=== PATIENT | male | born 1935 | race Caucasian/White ===

== ENCOUNTER 2020-07-07 06:57 | Day surgery (SDC) | payer MEDICARE, BC ==
[~2020-07-07 06:57] MED LIST: Lactated Ringers 1,000 ML IV SCH; Sodium Chloride 0.9% 10 ML SDV IV PRN; Sodium Chloride 0.9% 10 ML Syringe FLUSH PRN; Sodium Chloride 0.9% 2.5 ML Syringe FLUSH PRN
[2020-07-07] MEDS ORDERED: Lidocaine 2% 5 ML SDV ONE (07:15)
[2020-07-07] MEDS ORDERED: fentaNYL 100 MCG/2 ML SDV ONE (07:16)
[2020-07-07] MEDS ORDERED: Propofol 200 MG/20 ML SDV ONE (07:16)
--- NOTE | 2020-07-07 07:45 | PCM.PREANE ---
Preanesthetic Assessment - Anesthesia/Transfusion/Family Hx Anesthesia History: Prior Anesthesia Without Reaction Other Type of Anesthesia Reaction Comment: Denies any known problem in past Family History of Anesthesia Reaction: No Transfusion History: No Prior Transfusion(s) Intubation History: Unknown - Review of Systems General: No Symptoms Pulmonary: No Symptoms Cardiovascular: No Symptoms Gastrointestinal: Other (intermittent incontinance, h/o colon polyps 6 years ago (dr Pearce)) Neurological: No Symptoms Other: Reports: None - Physical Assessment Vital Signs: Last Vital Signs Temp 36.0 C L 07/07/20 07:10 Pulse 75 07/07/20 07:10 Resp 16 07/07/20 07:10 BP 142/75 H 07/07/20 07:10 Pulse Ox 95 07/07/20 07:10 Height: 6 ft 3 in Weight: 85.275 kg ASA Class: 3 Mental Status: Alert & Oriented x3 Airway Class: Mallampati = 2 Dentition: Reports: Dentures (upper and lower) Thyro-Mental Finger Breadths: 3 Mouth Opening Finger Breadths: 2 ROM/Head Extension: Limited/Partial Lungs: Clear to Auscultation, Normal Respiratory Effort Cardiovascular: Regular Rate, Regular Rhythm - Allergies Allergies/Adverse Reactions: Allergies Allergy/AdvReac Type Severity Reaction Status Date / Time No Known Allergies Allergy Verified 07/01/20 11:14 - Blood Blood Available: No - Anesthesia Plan Pre-Op Medication Ordered: None - Acknowledgements Anesthesia Type Planned: MAC Pt an Appropriate Candidate for the Planned Anesthesia: Yes Alternatives and Risks of Anesthesia Discussed w Pt/Guardian: Yes Pt/Guardian Understands and Agrees with Anesthesia Plan: Yes PreAnesthesia Questionnaire HEENT History: Reports: Allergic Rhinitis, Hard of Hearing, Other (See Below) Other HEENT History: wears glasses, top and bottom dentures, evon hearing aids Cardiovascular History: Reports: Afib (hystory of A. fib), Bypass (CABG x3 5 years ago -ok since), CAD, Heart Valve Replacement (AVR 5 years ago), High Cholesterol, [place] (small anterior 5 years ago), Other (See Below) Other Cardiovascular History: TIA episode before the Left carotid endarderectomy (rt arm weakness for 1/2 hour) Respiratory History: Reports: None Gastrointestinal History: Reports: Colon Polyp Genitourinary History: Reports: Prostate Disorder Musculoskeletal History: Reports: None Other Musculoskeletal History: To Right Hip...currently cleared after consistent anti-inflammatory therapy Neurological History: Reports: None Other Neuro History: Mild episode "spell" before Carotid surgery Psychiatric History: Reports: None Endocrine/Metabolic History: Reports: None Hematologic History: Reports: None Immunologic History: Reports: None Oncologic (Cancer) History: Reports: Basal Cell Carcinoma, Prostate ( prostatectomy with no radiation), Other (See Below) Other Oncologic History: basal cell removed from forehead and rt ear Dermatologic History: Reports: None Other Dermatologic History: Excision off Ear - Past Surgical History Head Surgeries/Procedures: Reports: None HEENT Surgical History: Reports: Cataract Surgery, Radiocarotid Ectomy (left carotid 6 years ago) Other HEENT Surgeries/Procedures: Cataract surgery many yrs ago Cardiovascular Surgical History: Reports: Coronary Artery Bypass (x3 5 years ago), Valve Replacement (AVR 5 years ago) Respiratory Surgical History: Reports: None GI Surgical History: Reports: Colonoscopy Other Female Surgeries/Procedures: Prostate Surgery Male Surgical History: Reports: Prostatectomy () Endocrine Surgical History: Reports: None Neurological Surgical History: Reports: None Musculoskeletal Surgical History: Reports: None Oncologic Surgical History: Reports: Other (See Below) Other Oncologic Surgeries/Procedures: prostatectomy Dermatological Surgical History: Reports: Skin Biopsy - SUBSTANCE USE Smoking Status *Q: Former Smoker Tobacco Use Within Last Twelve Months: No Recreational Drug Use History: No - HOME MEDS Home Medications: Home Meds Ascorbate Calcium [Vitamin C] 1 tab PO DAILY 07/16/14 [History] Aspirin 1 tab PO DAILY 07/16/14 [History] Multivit-Min/FA/Lycopene/Lut [Centrum Silver] 1 tab PO DAILY 07/16/14 [History] atorvaSTATin Calcium [Atorvastatin Calcium] 40 mg PO DAILY 07/01/20 [History] - CURRENT (IN HOUSE) MEDS Current Meds: Current Medications Lactated Ringer's (Ringers, Lactated) 1,000 mls @ 125 mls/hr IV ASDIRECTED KATE Last Admin: 07/07/20 07:20 Dose: 125 mls/hr Documented by: Sodium Chloride (Saline Flush) 10 ml FLUSH ASDIRECTED PRN PRN Reason: Keep Vein Open Sodium Chloride (Saline Flush) 2.5 ml FLUSH ASDIRECTED PRN PRN Reason: Keep Vein Open Sodium Chloride (Saline Flush) 10 ml FLUSH ASDIRECTED PRN PRN Reason: Keep Vein Open Sodium Chloride (Saline Flush) 2.5 ml FLUSH ASDIRECTED PRN PRN Reason: Keep Vein Open Sodium Chloride (Normal Saline) 10 ml IV ASDIRECTED PRN PRN Reason: IV Use Discontinued Medications Fentanyl (Sublimaze) Confirm Administered Dose 100 mcg .ROUTE .STK-MED ONE Stop: 07/07/20 07:17 Lidocaine (Xylocaine-Mpf 2%) Confirm Administered Dose 5 ml .ROUTE .STK-MED ONE Stop: 07/07/20 07:16 Propofol (Diprivan 20 Ml) Confirm Administered Dose 400 mg .ROUTE .STK-MED ONE Stop: 07/07/20 07:17
[2020-07-07] MEDS ORDERED: ePHEDrine 50 MG/ML SDV ONE (08:13)
--- NOTE | 2020-07-07 08:54 | PCM.OPNOTE ---
- General Post-Op/Procedure Note Date of Surgery/Procedure: 07/07/20 Operative Procedure(s): Diagnostic colonoscopy Findings: Rectal polyp, sigmoid colon polyps x 2 @ 40 cm, ascending colon mass @ 80cm Pre Op Diagnosis: Fecal incontinence, change in bowel habits Post-Op Diagnosis: Ascending colon mass, rectal polyp, sigmoid colon polyp x 2 Anesthesia Technique: MAC Primary Surgeon: Barbara Rios Condition: Good
--- NOTE | 2020-07-07 09:20 | PCM.POSTAN ---
POST ANESTHESIA ASSESSMENT - MENTAL STATUS Mental Status: Alert, Oriented - VITAL SIGNS Vital Signs: Last Vital Signs Temp 36.0 C L 07/07/20 07:10 Pulse 74 07/07/20 09:04 Resp 9 L 07/07/20 09:04 BP 120/71 07/07/20 09:04 Pulse Ox 94 L 07/07/20 09:04 - RESPIRATORY Respiratory Status: Respiratory Rate WNL, Airway Patent, O2 Saturation Stable - CARDIOVASCULAR CV Status: Pulse Rate WNL, Blood Pressure Stable - GASTROINTESTINAL GI Status: No Symptoms - PAIN Pain Score: 0 - POST OP HYDRATION Hydration Status: Adequate & Stable - OBSERVATIONS Free Text/Narrative:: No anesthesia problems
--- NOTE | 2020-07-07 09:31 | PCM48HPAN ---
Post Anesthesia Note - EVALUATION WITHIN 48HRS OF ANESTHETIC Vital Signs in Normal Range: Yes Patient Participated in Evaluation: Yes Respiratory Function Stable: Yes Airway Patent: Yes Cardiovascular Function Stable: Yes Hydration Status Stable: Yes Pain Control Satisfactory: Yes Nausea and Vomiting Control Satisfactory: Yes Mental Status Recovered: Yes Vital Signs: Last Vital Signs Temp 36.0 C L 07/07/20 07:10 Pulse 74 07/07/20 09:04 Resp 9 L 07/07/20 09:04 BP 120/71 07/07/20 09:04 Pulse Ox 94 L 07/07/20 09:04 - COMMENTS/OBSERVATIONS Free Text/Narrative:: No anesthesia problems
--- NOTE | 2020-07-07 12:34 | OR ---
SURGEON: BARBARA RIOS MD DATE OF PROCEDURE: 07/07/2020 PREOPERATIVE DIAGNOSES: Change in bowel habits, fecal incontinence. POSTOPERATIVE DIAGNOSES: 1. Rectal polyp. 2. Sigmoid colon polyps x2. 3. Ascending colon mass. 4. Diverticulosis within the sigmoid colon. PROCEDURE PERFORMED: Diagnostic colonoscopy with biopsies and polypectomy. PRIMARY SURGEON: Barbara Rios MD ANESTHESIA: MAC. INSTRUMENT USED: Olympus colonoscope. EXTENT OF EXAM: To the cecum. PREPARATION: Good. LIMITATIONS: None. INDICATIONS FOR EXAMINATION: The patient is an 85-year-old male who came to see me a year ago complaining of fecal incontinence. He increased the fiber in his diet and started using daily Imodium. This helped a small amount but his symptoms persisted. He came back and the decision was made to proceed with a diagnostic colonoscopy. I explained the procedure; expected perioperative course; and risks including bleeding, infection, or damage to surrounding structures including perforation. The patient verbalized understanding and wishes to proceed. PROCEDURE IN DETAIL: The patient was brought into the endoscopy suite and placed in the left lateral decubitus position. A time-out was completed verifying the patient's name, age, date of , allergies, and procedure to be performed. Monitored anesthesia care was induced and continuous oxygen was provided via nasal cannula throughout the procedure. After adequate sedation was achieved, a digital rectal exam was performed. I could palpate a polyp within the rectum along the left lateral side. A well-lubricated colonoscope was inserted in the rectum, and I visualized a polyp. The colonoscope was then advanced under direct visualization to the level of the cecum. The cecum was identified by both visual and anatomic landmarks. A photograph was taken of the cecal cap; however, due to looping of the scope more proximally, I was unable to retroflex the scope within the cecum. The scope was fully withdrawn while examining the color, texture, anatomy, and integrity of the mucosa from the cecum to the anal canal. The patient was found to have a sessile mass in the midportion of the ascending colon at 80 cm. This encompassed approximately half of the circumference of the colonic mucosa. Multiple biopsies were taken and sent to pathology, labeled as ascending colon mass. Photographs were taken. The area was then inked for identification in the future. The patient was noted to have diverticulosis within the sigmoid colon. At 40 cm, the patient was noted to have two sessile polyps. These were both removed in piecemeal fashion using cold biopsy forceps. They were sent to pathology, labeled as sigmoid colon polyp number 1 and 2. The scope was then brought into the rectum. The rectal polyp was then removed using a hot snare. It was sent to pathology, labeled as rectal polyp. The scope was then retroflexed within the rectum to allow visualization of the anal canal opening. This appeared grossly normal. The scope was then straightened out and fully withdrawn. Cecum to anus time was 29 minutes. The patient tolerated the procedure well and was taken to the PACU in stable condition. ENDOSCOPIC DIAGNOSES: 1. Rectal polyp. 2. Sigmoid colon polyps x2. 3. Ascending colon mass. 4. Diverticulosis within the sigmoid colon. RECOMMENDATIONS: I will follow up on the patients pathology results, but will refer him to a colorectal surgeon for further management. HASEEB WILLIS /[id number] MTDD
[2020-07-07 12:40] VITALS: BP 118/62; PULSE 72
== END 2020-07-07 09:25 | disposition home or self-care (01) ==
LOC: MW.SDS 06:57
PROVIDERS: ATTEND Surgery
DX: D12.2 Benign neoplasm of ascending colon (principal); D12.8 Benign neoplasm of rectum; D12.5 Benign neoplasm of sigmoid colon; K57.30 Diverticulosis of large intestine without perforation or abscess without bleeding; I25.10 Atherosclerotic heart disease of native coronary artery without angina pectoris; Z87.891 Personal history of nicotine dependence; Z79.82 Long term (current) use of aspirin; Z86.010 Personal history of colon polyps; Z98.890 Other specified postprocedural states
CPT/HCPCS: 45380; 45385; J2001; J2704; J3010; J7120; 00811

== ENCOUNTER 2021-04-27 06:37 | Day surgery (SDC) | payer MEDICARE, BC ==
[~2021-04-27 06:37] MED LIST changes: -Lactated Ringers 1,000 ML IV SCH
[2021-04-27] MEDS ORDERED: Lidocaine 2% 5 ML SDV ONE (06:51)
[2021-04-27] MEDS ORDERED: Ondansetron 4 MG/2 ML SDV ONE (06:51)
[2021-04-27] MEDS ORDERED: Propofol 200 MG/20 ML SDV ONE (06:51)
--- NOTE | 2021-04-27 07:07 | PCM.PREANE ---
Preanesthetic Assessment - Anesthesia/Transfusion/Family Hx Anesthesia History: Prior Anesthesia Without Reaction Other Type of Anesthesia Reaction Comment: Denies any known problem in past Family History of Anesthesia Reaction: No Transfusion History: No Prior Transfusion(s) Intubation History: Unknown - Review of Systems General: No Symptoms Pulmonary: No Symptoms Cardiovascular: No Symptoms, Other (AVR CABG X3 Echo EF 60%) Gastrointestinal: No Symptoms, Other (colon CA s/p chemo ) Neurological: No Symptoms Other: Reports: None - Physical Assessment NPO Status Date: 04/27/21 NPO Status Time: 00:00 Vital Signs: Last Vital Signs Temp 36.1 C 04/27/21 06:52 Pulse 63 04/27/21 06:52 Resp 16 04/27/21 06:52 BP 177/86 H 04/27/21 06:52 Pulse Ox 95 04/27/21 06:52 Height: 1.91 m Weight: 81.193 kg Mental Status: Alert & Oriented x3 Dentition: Reports: Normal Dentition ROM/Head Extension: Full Lungs: Clear to Auscultation, Normal Respiratory Effort Cardiovascular: Regular Rate, Regular Rhythm - Allergies Allergies/Adverse Reactions: Allergies Allergy/AdvReac Type Severity Reaction Status Date / Time No Known Allergies Allergy Verified 04/24/21 09:57 PreAnesthesia Questionnaire HEENT History: Reports: Allergic Rhinitis, Hard of Hearing, Other (See Below) Other HEENT History: wears glasses, top and bottom dentures, evon hearing aids Cardiovascular History: Reports: Afib, Bypass, CAD, Heart Valve Replacement, High Cholesterol, [place], Other (See Below) Other Cardiovascular History: TIA episode before the Left carotid endarderectomy (rt arm weakness for 1/2 hour) Respiratory History: Reports: None Gastrointestinal History: Reports: Colon Polyp Genitourinary History: Reports: Prostate Disorder Musculoskeletal History: Reports: None Neurological History: Reports: TIA Other Neuro History: Mild episode "spell" before Carotid surgery Psychiatric History: Reports: None Endocrine/Metabolic History: Reports: None Hematologic History: Reports: None Immunologic History: Reports: None Oncologic (Cancer) History: Reports: Basal Cell Carcinoma, Colon, Prostate, Other (See Below) Other Oncologic History: basal cell removed from forehead and rt ear Dermatologic History: Other Dermatologic History: Excision of basal cell carcinoma from ear and forehead - Past Surgical History Head Surgeries/Procedures: Reports: None HEENT Surgical History: Reports: Cataract Surgery, Radiocarotid Ectomy Other HEENT Surgeries/Procedures: Cataract surgery many yrs ago Cardiovascular Surgical History: Reports: Coronary Artery Bypass, Valve Rep lacement Other Cardiovascular Surgeries/Procedures: LEFT Respiratory Surgical History: Reports: None GI Surgical History: Reports: Colon, Colonoscopy Other GI Surgeries/Procedures: colon resection for colon cancer Other Female Surgeries/Procedures: Prostate Surgery Male Surgical History: Reports: Prostatectomy Endocrine Surgical History: Reports: None Neurological Surgical History: Reports: None Musculoskeletal Surgical History: Reports: None Oncologic Surgical History: Reports: Other (See Below) Other Oncologic Surgeries/Procedures: mohs procedure Dermatological Surgical History: Reports: Skin Biopsy - SUBSTANCE USE Tobacco Use Status *Q: Former Tobacco User Tobacco Use Within Last Twelve Months: No - HOME MEDS Home Medications: Home Meds Ascorbate Calcium [Vitamin C] 1 tab PO DAILY 07/16/14 [History] Multivit-Min/FA/Lycopene/Lut [Centrum Silver] 1 tab PO DAILY 07/16/14 [History] Amiodarone HCl [Pacerone] 100 mg PO DAILY 04/24/21 [History] Apixaban [Eliquis] 5 mg PO BID 04/24/21 [History] Aspirin [Adult Aspirin Regimen] 81 mg PO DAILY 04/24/21 [History] atorvaSTATin Calcium [Atorvastatin Calcium] 40 mg PO BEDTIME 04/24/21 [History] - CURRENT (IN HOUSE) MEDS Current Meds: Current Medications Sodium Chloride (Sodium Chloride 0.9% 10 Ml Syringe) 10 ml FLUSH ASDIRECTED PRN PRN Reason: Keep Vein Open Sodium Chloride (Sodium Chloride 0.9% 2.5 Ml Syringe) 2.5 ml FLUSH ASDIRECTED PRN PRN Reason: Keep Vein Open Sodium Chloride (Sodium Chloride 0.9% 10 Ml Syringe) 10 ml FLUSH ASDIRECTED PRN PRN Reason: Keep Vein Open Sodium Chloride (Sodium Chloride 0.9% 2.5 Ml Syringe) 2.5 ml FLUSH ASDIRECTED PRN PRN Reason: Keep Vein Open Sodium Chloride (Sodium Chloride 0.9% 10 Ml Sdv) 10 ml IV ASDIRECTED PRN PRN Reason: IV Use Discontinued Medications Lidocaine (Lidocaine 2% 5 Ml Sdv) Confirm Administered Dose 5 ml .ROUTE .STK-MED ONE Stop: 04/27/21 06:52 Ondansetron HCl (Ondansetron 4 Mg/2 Ml Sdv) Confirm Administered Dose 4 mg .ROUTE .STK-MED ONE Stop: 04/27/21 06:52 Propofol (Propofol 200 Mg/20 Ml Sdv) Confirm Administered Dose 200 mg .ROUTE .STK-MED ONE Stop: 04/27/21 06:52
[2021-04-27] MEDS ORDERED: Ondansetron 4 MG/2 ML SDV IVPUSH PRN (07:08)
[2021-04-27] MEDS ORDERED: fentaNYL 100 MCG/2 ML SDV IVPUSH PRN (07:08)
[2021-04-27] MEDS ORDERED: Albuterol 0.083% 2.5 MG/3 ML Neb Soln NEB PRN (07:08)
[2021-04-27] MEDS ORDERED: Bupivacaine 0.5% 10 ML SDV ONE (07:31)
[2021-04-27] MEDS ORDERED: Octyl 2-Cyanoacrylate 1 Tube ONE (08:05)
[2021-04-27] MEDS ORDERED: ceFAZolin 1 GM Vial ONE ×2 (08:12)
--- NOTE | 2021-04-27 08:25 | PCM.POSTAN ---
POST ANESTHESIA ASSESSMENT - MENTAL STATUS Mental Status: Alert, Oriented - VITAL SIGNS Vital Signs: Last Vital Signs Temp 97.0 F 04/27/21 06:52 Pulse 63 04/27/21 06:52 Resp 16 04/27/21 06:52 BP 177/86 H 04/27/21 06:52 Pulse Ox 95 04/27/21 06:52 - RESPIRATORY Respiratory Status: Respiratory Rate WNL, Airway Patent, O2 Saturation Stable - CARDIOVASCULAR CV Status: Pulse Rate WNL, Blood Pressure Stable - GASTROINTESTINAL GI Status: No Symptoms - POST OP HYDRATION Hydration Status: Adequate & Stable
--- NOTE | 2021-04-27 08:25 | PCM48HPAN ---
Post Anesthesia Note - EVALUATION WITHIN 48HRS OF ANESTHETIC Vital Signs in Normal Range: Yes Patient Participated in Evaluation: Yes Respiratory Function Stable: Yes Airway Patent: Yes Cardiovascular Function Stable: Yes Hydration Status Stable: Yes Pain Control Satisfactory: Yes Nausea and Vomiting Control Satisfactory: Yes Mental Status Recovered: Yes Vital Signs: Last Vital Signs Temp 97.0 F 04/27/21 06:52 Pulse 63 04/27/21 06:52 Resp 16 04/27/21 06:52 BP 177/86 H 04/27/21 06:52 Pulse Ox 95 04/27/21 06:52
[2021-04-27 08:46] VITALS: PULSE 50
[2021-04-27 09:06] VITALS: BP 130/67
--- NOTE | 2021-04-27 09:19 | PCM.OPNOTE ---
- General Post-Op/Procedure Note Date of Surgery/Procedure: 04/27/21 Operative Procedure(s): Removal right port a cath Findings: right port a cath Pre Op Diagnosis: Colon cancer, encounter for port a cath care Post-Op Diagnosis: same Anesthesia Technique: MAC Primary Surgeon: Barbara Rios (caroline) Fluid Replacement, Intraop: 500 EBL in mLs: 2 Condition: Good Free Text/Narrative:: Intake & Output 04/26/21 04/27/21 04/27/21 22:59 06:59 14:59 Intake Total 500 Balance 500
--- NOTE | 2021-04-27 13:20 | OR ---
SURGEON: BARBARA RIOS MD DATE OF PROCEDURE: 04/27/2021 PREOPERATIVE DIAGNOSIS: Colon cancer. POSTOPERATIVE DIAGNOSIS: Colon cancer. PROCEDURE PERFORMED: Removal of right subclavian Port-A-Cath. PRIMARY SURGEON: Barbara Rios MD ANESTHESIA: MAC, local. FLUIDS: 500 mL crystalloid. ESTIMATED BLOOD LOSS: 2 mL. FINDINGS: Intact right-sided Port-A-Cath. COMPLICATIONS: None. INDICATIONS: The patient is an 85-year-old male who has completed chemotherapy treatment for colon cancer. He has gotten an okay to remove his Port-A-Cath. I explained the procedure, expected perioperative course, and the risks. He verbalized understanding and wishes to proceed. PROCEDURE IN DETAIL: The patient was brought into the OR and placed on the OR table in supine position. A time-out was completed verifying the patient's name, age, date of , allergies, and procedure to be performed. Monitored anesthesia care was induced. The right chest and neck were prepped and draped in usual standard fashion. After adequate sedation was achieved, I anesthetized the area overlying the right anterior chest wall site with a 1:1 mixture of 0.5% Marcaine and 1% lidocaine plain. A 15 blade was used to make an incision over his previous chest wall incision. Using cautery, I dissected down to the level of the Port-A-Cath device. The scar capsule was opened up and dissected away from the Port-A-Cath device itself. The Port-A-Cath was then brought outside of the incision and gentle pressure was used to pull the catheter out. The catheter appeared to be intact. It was passed off the field. Hemostasis was achieved in the wound using electrocautery. The wound was then closed with interrupted 3-0 Vicryl sutures in the subcutaneous fat space and the skin was closed with running 4-0 Monocryl stitch. Dermabond and a sterile dressing were applied. The patient tolerated the procedure well, was transferred to PACU in stable condition. All counts were complete and correct at the end of the case. HASEEB / ALBA /[id number]
== END 2021-04-27 09:40 | disposition home or self-care (01) ==
LOC: MW.SDS 06:37
PROVIDERS: ATTEND Surgery
DX: Z45.2 Encounter for adjustment and management of vascular access device (principal); C18.9 Malignant neoplasm of colon, unspecified; I25.10 Atherosclerotic heart disease of native coronary artery without angina pectoris; I48.91 Unspecified atrial fibrillation; E78.00 Pure hypercholesterolemia, unspecified; I25.2 Old myocardial infarction; Z79.899 Other long term (current) drug therapy; Z79.01 Long term (current) use of anticoagulants; Z79.82 Long term (current) use of aspirin; Z98.890 Other specified postprocedural states; Z87.891 Personal history of nicotine dependence; Z86.73 Personal history of transient ischemic attack (TIA), and cerebral infarction without residual deficits
CPT/HCPCS: 36590; A9270; J0690; J2704; J3490; 88300; J2405

== ENCOUNTER 2021-09-07 07:22 | Day surgery (SDC) | payer MEDICARE, BC ==
[~2021-09-07 07:22] MED LIST changes: +Lactated Ringers 1,000 ML IV SCH; -Sodium Chloride 0.9% 10 ML SDV IV PRN; +Sodium Chloride 0.9% 20 ML SDV IV PRN
--- NOTE | 2021-09-07 07:53 | PCM.PREANE ---
Preanesthetic Assessment - Anesthesia/Transfusion/Family Hx Anesthesia History: Prior Anesthesia Without Reaction Other Type of Anesthesia Reaction Comment: Denies any known problem in past Transfusion History: No Prior Transfusion(s) Intubation History: Unknown - Review of Systems General: No Symptoms Pulmonary: No Symptoms Cardiovascular: No Symptoms Gastrointestinal: No Symptoms Neurological: No Symptoms Other: Reports: None - Physical Assessment NPO Status Date: 09/07/21 NPO Status Time: 00:00 Height: 6 ft 3 in Weight: 183 lb ASA Class: 3 Mental Status: Alert & Oriented x3 Airway Class: Mallampati = 2 Dentition: Reports: Normal Dentition ROM/Head Extension: Full Lungs: Clear to Auscultation, Normal Respiratory Effort Cardiovascular: Regular Rate, Regular Rhythm - Allergies Allergies/Adverse Reactions: Allergies Allergy/AdvReac Type Severity Reaction Status Date / Time No Known Allergies Allergy Verified 09/04/21 11:06 - Acknowledgements Anesthesia Type Planned: General Anesthesia Pt an Appropriate Candidate for the Planned Anesthesia: Yes Alternatives and Risks of Anesthesia Discussed w Pt/Guardian: Yes Pt/Guardian Understands and Agrees with Anesthesia Plan: Yes PreAnesthesia Questionnaire HEENT History: Reports: Allergic Rhinitis, Cataract, Hard of Hearing, Other (See Below) Other HEENT History: wears glasses, top and bottom dentures, evon hearing aids Cardiovascular History: Reports: Afib, Bypass, CAD, Heart Valve Replacement, High Cholesterol, [place], Other (See Below) Other Cardiovascular History: TIA episode before the Left carotid endarderectomy (rt arm weakness for 1/2 hour) Respiratory History: Reports: None Gastrointestinal History: Reports: Colon Polyp Genitourinary History: Reports: Prostate Disorder Musculoskeletal History: Reports: None Neurological History: Reports: TIA Other Neuro History: Mild episode "spell" before Carotid surgery Psychiatric History: Reports: None Endocrine/Metabolic History: Reports: None Hematologic History: Reports: Anticoagulation Therapy Immunologic History: Reports: None Oncologic (Cancer) History: Reports: Basal Cell Carcinoma, Colon, Prostate, Other (See Below) Other Oncologic History: basal cell removed from forehead and rt ear Dermatologic History: Other Dermatologic History: Excision of basal cell carcinoma from ear and forehead - Past Surgical History Head Surgeries/Procedures: Reports: None HEENT Surgical History: Reports: Cataract Surgery, Radiocarotid Ectomy Other HEENT Surgeries/Procedures: Cataract surgery many yrs ago Cardiovascular Surgical History: Reports: Carotid Endarterectomy, Coronary Artery Bypass, Valve Replacement, Vascular Surgery Other Cardiovascular Surgeries/Procedures: CABG x3 vessels, Aortic valve replacement, Port-a-Cath placement and removal Respiratory Surgical History: Reports: None GI Surgical History: Reports: Colon, Colonoscopy Other GI Surgeries/Procedures: colon resection for colon cancer Male Surgical History: Reports: Prostatectomy Endocrine Surgical History: Reports: None Neurological Surgical History: Reports: None Musculoskeletal Surgical History: Reports: None Oncologic Surgical History: Reports: Other (See Below) Other Oncologic Surgeries/Procedures: mohs procedure Dermatological Surgical History: Reports: Skin Biopsy - SUBSTANCE USE Tobacco Use Status *Q: Former Tobacco User Tobacco Use Within Last Twelve Months: No Recreational Drug Use History: No - HOME MEDS Home Medications: Home Meds Ascorbate Calcium [Vitamin C] 500 mg PO DAILY 07/16/14 [History] Multivit-Min/FA/Lycopene/Lut [Centrum Silver] 1 tab PO DAILY 07/16/14 [History] Amiodarone HCl [Pacerone] 100 mg PO QAM 04/24/21 [History] Apixaban [Eliquis] 5 mg PO BID 04/24/21 [History] Aspirin [Adult Aspirin Regimen] 81 mg PO DAILY 04/24/21 [History] atorvaSTATin Calcium [Atorvastatin Calcium] 40 mg PO BEDTIME 04/24/21 [History] - CURRENT (IN HOUSE) MEDS Current Meds: Current Medications Lactated Ringer's (Ringers, Lactated) 1,000 mls @ 125 mls/hr IV ASDIRECTED KATE Last Admin: 09/07/21 07:51 Dose: 125 mls/hr Documented by: Sodium Chloride (Sodium Chloride 0.9% 10 Ml Syringe) 10 ml FLUSH ASDIRECTED PRN PRN Reason: Keep Vein Open Sodium Chloride (Sodium Chloride 0.9% 2.5 Ml Syringe) 2.5 ml FLUSH ASDIRECTED PRN PRN Reason: Keep Vein Open Sodium Chloride (Sodium Chloride 0.9% 10 Ml Syringe) 10 ml FLUSH ASDIRECTED PRN PRN Reason: Keep Vein Open Sodium Chloride (Sodium Chloride 0.9% 2.5 Ml Syringe) 2.5 ml FLUSH ASDIRECTED PRN PRN Reason: Keep Vein Open Sodium Chloride (Sodium Chloride 0.9% 20 Ml Sdv) 10 ml IV ASDIRECTED PRN PRN Reason: IV Use
[2021-09-07] MEDS ORDERED: Propofol 200 MG/20 ML SDV ONE (08:24)
[2021-09-07] MEDS ORDERED: fentaNYL 100 MCG/2 ML SDV ONE (08:48)
--- NOTE | 2021-09-07 09:29 | PCM.POSTAN ---
POST ANESTHESIA ASSESSMENT - MENTAL STATUS Mental Status: Alert, Oriented - VITAL SIGNS Vital Signs: Last Vital Signs Temp 97.2 F 09/07/21 09:21 Pulse 55 L 09/07/21 09:27 Resp 11 L 09/07/21 09:27 BP 95/55 L 09/07/21 09:27 Pulse Ox 98 09/07/21 09:27 - RESPIRATORY Respiratory Status: Respiratory Rate WNL, Airway Patent, O2 Saturation Stable - CARDIOVASCULAR CV Status: Pulse Rate WNL, Blood Pressure Stable - GASTROINTESTINAL GI Status: No Symptoms - POST OP HYDRATION Hydration Status: Adequate & Stable
--- NOTE | 2021-09-07 09:30 | PCM48HPAN ---
Post Anesthesia Note - EVALUATION WITHIN 48HRS OF ANESTHETIC Vital Signs in Normal Range: Yes Patient Participated in Evaluation: Yes Respiratory Function Stable: Yes Airway Patent: Yes Cardiovascular Function Stable: Yes Hydration Status Stable: Yes Pain Control Satisfactory: Yes Nausea and Vomiting Control Satisfactory: Yes Mental Status Recovered: Yes Vital Signs: Last Vital Signs Temp 97.2 F 09/07/21 09:21 Pulse 55 L 09/07/21 09:27 Resp 11 L 09/07/21 09:27 BP 95/55 L 09/07/21 09:27 Pulse Ox 98 09/07/21 09:27
[2021-09-07 10:05] VITALS: BP 148/83; PULSE 57
--- NOTE | 2021-09-07 14:48 | PCM.OPNOTE ---
- General Post-Op/Procedure Note Date of Surgery/Procedure: 09/07/21 Operative Procedure(s): Diagnostic colonoscopy Findings: Unable to reach the right sided anastomosis but able to get close to the area. Polyp near the proximal colon in the area of the hepatic flexure. Diverticulosis Pre Op Diagnosis: History of colon cancer Post-Op Diagnosis: Diverticulosis, hepatic flexure polyp Anesthesia Technique: MAC Primary Surgeon: Barbara Rios Condition: Good Free Text/Narrative:: Intake & Output 09/06/21 09/07/21 09/07/21 22:59 06:59 14:59 Intake Total 800 Balance 800
--- NOTE | 2021-09-08 10:20 | OR ---
SURGEON: BARBARA RIOS MD DATE OF PROCEDURE: 09/07/2021 PREOPERATIVE DIAGNOSIS: History of colon cancer. POSTOPERATIVE DIAGNOSIS: Hepatic flexure polyp, diverticulosis. PROCEDURE PERFORMED: Diagnostic colonoscopy with polypectomy, incomplete. PRIMARY SURGEON: Barbara Rios MD ANESTHESIA: General. INSTRUMENT USED: Olympus colonoscope. EXTENT OF THE EXAM: To the proximal colon. PREPARATION: Good. LIMITATIONS: Unable to reach the small bowel-colon anastomosis. COMPLICATIONS: None. INDICATIONS: The patient is an 86-year-old male who 1 year ago was diagnosed with right-sided colon cancer. He underwent a right hemicolectomy. The patient is here for a 1- year followup colonoscopy. I explained the procedure, expected perioperative course, and the risks. He verbalized understanding and wishes to proceed. PROCEDURE IN DETAIL: The patient was brought into the endoscopy suite and placed in a left lateral decubitus position. A time-out was completed verifying the patient's name, age, date of , allergies, and procedure to be performed. Monitored general anesthesia care was induced and continuous oxygen was provided via nasal cannula throughout the procedure. After adequate sedation was achieved, a digital rectal exam was performed. This exam was within normal limits. A well-lubricated colonoscope was inserted in the rectum and advanced under direct visualization to the level of the proximal colon. Near what appeared to be the hepatic flexure, the patient had a pedunculated polyp. This was removed using a hot snare. It was sent to pathology labeled as hepatic flexure polyp. In the proximal colon, the patient's mucosa seemed to twist around on itself. I attempted multiple position changes and applying pressure, but unfortunately, I could not get past this area. The decision was made to not complete the colonoscopy at this time. The scope was fully withdrawn while examining the color, texture, anatomy, and integrity of the mucosa from the proximal colon to the anal canal. The patient had no other polyps. I did note a small diverticula within the colon. The scope was brought into the rectum and retroflexed to allow visualization of the anal canal opening. This appeared normal and photograph was taken. The scope was then straightened out and fully withdrawn. The patient tolerated the procedure well, was transferred to the PACU in stable condition. ENDOSCOPIC DIAGNOSES: 1. Hepatic flexure polyp. 2. Incomplete colonoscopy. RECOMMENDATIONS: I visited with the patient and his in the postoperative area. I will order a diagnostic barium enema to ensure that the proximal colon and anastomosis have no evidence of pathology. HASEEB WILLIS /[id number] MTDD
== END 2021-09-07 10:13 | disposition home or self-care (01) ==
LOC: MW.SDS 07:22
PROVIDERS: ATTEND Surgery
DX: Z12.11 Encounter for screening for malignant neoplasm of colon (principal); D12.3 Benign neoplasm of transverse colon; K57.30 Diverticulosis of large intestine without perforation or abscess without bleeding; I48.91 Unspecified atrial fibrillation; I25.10 Atherosclerotic heart disease of native coronary artery without angina pectoris; E78.00 Pure hypercholesterolemia, unspecified; Z86.73 Personal history of transient ischemic attack (TIA), and cerebral infarction without residual deficits; Z85.038 Personal history of other malignant neoplasm of large intestine; Z90.49 Acquired absence of other specified parts of digestive tract; Z79.899 Other long term (current) drug therapy; Z79.01 Long term (current) use of anticoagulants; Z98.890 Other specified postprocedural states; Z87.891 Personal history of nicotine dependence
CPT/HCPCS: 45385; J2704; J3010; J7120; 00811; 99100

== ENCOUNTER 2021-11-09 08:37 | Day surgery (SDC) | payer MEDICARE, BC ==
[~2021-11-09 08:37] MED LIST changes: +Albuterol 0.083% 2.5 MG/3 ML Neb Soln NEB PRN; +HYDROmorphone 1 MG/ML Syringe IVPUSH PRN; +Metoclopramide 10 MG/2 ML SDV IVPUSH PRN; +Morphine 2 MG/ML SYRINGE IVPUSH PRN; +Naloxone 0.4 MG/ML SDV IVPUSH PRN; +Ondansetron 4 MG/2 ML SDV IVPUSH PRN; +ceFAZolin 2 GM in Premix Bag 1 BAG IV ONE; +fentaNYL 100 MCG/2 ML SDV IVPUSH PRN
[2021-11-09] MEDS ORDERED: Dexmedetomidine 200 MCG/2 ML SDV ONE (08:58)
[2021-11-09] MEDS ORDERED: Propofol 200 MG/20 ML SDV ONE ×2 (09:00→11:28)
[2021-11-09] MEDS ORDERED: fentaNYL 100 MCG/2 ML SDV ONE (09:00)
[2021-11-09] MEDS ORDERED: Bupivacaine 0.5% 30 ML SDV ONE (09:45)
[2021-11-09] MEDS ORDERED: Phenylephrine 1% 10 MG/ML SDV ONE (10:35)
[2021-11-09] MEDS ORDERED: Octyl 2-Cyanoacrylate 1 Tube ONE (11:07)
[2021-11-09] MEDS ORDERED: Acetaminophen/oxyCODONE 325-5 MG Tab PO PRN (13:37)
[2021-11-09] MEDS ORDERED: Acetaminophen/oxyCODONE 325-5 MG Tab ONE (13:38)
[2021-11-09 16:00] VITALS: BP 170/91; PULSE 53
== END 2021-11-09 15:36 | disposition home or self-care (01) ==
LOC: MW.SDS 08:37
PROVIDERS: ATTEND Surgery
DX: K40.90 Unilateral inguinal hernia, without obstruction or gangrene, not specified as recurrent (principal); D17.6 Benign lipomatous neoplasm of spermatic cord; I48.91 Unspecified atrial fibrillation; I25.10 Atherosclerotic heart disease of native coronary artery without angina pectoris; E78.00 Pure hypercholesterolemia, unspecified; Z79.01 Long term (current) use of anticoagulants; Z79.899 Other long term (current) drug therapy; Z79.82 Long term (current) use of aspirin; Z98.890 Other specified postprocedural states; Z87.891 Personal history of nicotine dependence; Z86.73 Personal history of transient ischemic attack (TIA), and cerebral infarction without residual deficits
CPT/HCPCS: 00830; 99100; A9270-GY; C1781; J2370; J2704; J3010; J3490; J7120

== ENCOUNTER 2022-10-09 06:35 | Day surgery (SDC) | payer MEDICARE, BC ==
[~2022-10-09 06:35] MED LIST changes: -Albuterol 0.083% 2.5 MG/3 ML Neb Soln NEB PRN; -HYDROmorphone 1 MG/ML Syringe IVPUSH PRN; -Metoclopramide 10 MG/2 ML SDV IVPUSH PRN; -Morphine 2 MG/ML SYRINGE IVPUSH PRN; -Naloxone 0.4 MG/ML SDV IVPUSH PRN; -Ondansetron 4 MG/2 ML SDV IVPUSH PRN; -ceFAZolin 2 GM in Premix Bag 1 BAG IV ONE; -fentaNYL 100 MCG/2 ML SDV IVPUSH PRN
[2022-10-09] MEDS ORDERED: Propofol 200 MG/20 ML SDV ONE (07:35)
[2022-10-09 08:49] VITALS: PULSE 53
[2022-10-09 11:25] VITALS: BP 151/68
== END 2022-10-09 09:15 | disposition home or self-care (01) ==
LOC: MW.SDS 06:35
PROVIDERS: ATTEND Surgery
DX: Z12.11 Encounter for screening for malignant neoplasm of colon (principal); D12.5 Benign neoplasm of sigmoid colon; K57.30 Diverticulosis of large intestine without perforation or abscess without bleeding; J30.9 Allergic rhinitis, unspecified; I48.91 Unspecified atrial fibrillation; I25.10 Atherosclerotic heart disease of native coronary artery without angina pectoris; E78.00 Pure hypercholesterolemia, unspecified; Z86.73 Personal history of transient ischemic attack (TIA), and cerebral infarction without residual deficits; Z79.899 Other long term (current) drug therapy; Z98.890 Other specified postprocedural states; Z87.891 Personal history of nicotine dependence; Z86.010 Personal history of colon polyps; Z79.82 Long term (current) use of aspirin; Z95.1 Presence of aortocoronary bypass graft; Z95.4 Presence of other heart-valve replacement
CPT/HCPCS: 45380; J2704; J7120; 00811; 99100

== ENCOUNTER 2024-10-22 06:37 | Day surgery (SDC) | payer MEDICARE, BC ==
[~2024-10-22 06:37] MED LIST changes: -Lactated Ringers 1,000 ML IV SCH; +ceFAZolin 2 GM in Sodium Chloride 0.9% 50 ML IV ONE
[2024-10-22] MEDS: Lactated Ringers 1,000 ML IV SCH (07:00)
[2024-10-22] MEDS ORDERED: Lidocaine 1% 20 ML MDV ONE (07:11)
[2024-10-22] MEDS ORDERED: Bupivacaine 0.5% 10 ML SDV ONE (07:11)
[2024-10-22] MEDS ORDERED: Morphine 2 MG/ML SYRINGE IVPUSH PRN (07:23)
[2024-10-22] MEDS ORDERED: Metoclopramide 10 MG/2 ML SDV IVPUSH PRN (07:23)
[2024-10-22] MEDS ORDERED: fentaNYL 50 MCG/ML SDV IVPUSH PRN (07:23)
[2024-10-22] MEDS ORDERED: Phenylephrine HCl In 0.9% NaCl 1 MG/10 ML Syringe IVPUSH PRN (07:23)
[2024-10-22] MEDS ORDERED: Naloxone 0.4 MG/ML SDV IVPUSH PRN (07:23)
[2024-10-22] MEDS ORDERED: Albuterol 0.083% 2.5 MG/3 ML Neb Soln NEB PRN (07:23)
[2024-10-22] MEDS ORDERED: Ondansetron 4 MG/2 ML SDV IVPUSH PRN (07:23)
[2024-10-22] MEDS ORDERED: HYDROmorphone 1 MG/ML Syringe IVPUSH PRN (07:23)
[2024-10-22] MEDS ORDERED: Propofol 200 MG/20 ML SDV ONE (07:26)
[2024-10-22] MEDS ORDERED: fentaNYL 100 MCG/2 ML SDV ONE (07:26)
[2024-10-22] MEDS ORDERED: ceFAZolin 2 GM Vial ONE (08:20)
[2024-10-22 10:12] VITALS: BP 168/67; PULSE 60
== END 2024-10-22 09:57 | disposition home or self-care (01) ==
LOC: MW.SDS 06:37
PROVIDERS: ATTEND Surgery
DX: C61 Malignant neoplasm of prostate (principal); E78.00 Pure hypercholesterolemia, unspecified; I48.91 Unspecified atrial fibrillation; I25.10 Atherosclerotic heart disease of native coronary artery without angina pectoris; Z95.1 Presence of aortocoronary bypass graft; Z79.01 Long term (current) use of anticoagulants; Z79.899 Other long term (current) drug therapy; Z87.891 Personal history of nicotine dependence
CPT/HCPCS: 00532; 36561; 71045; 71045-26; 76000; 76000-26; 99100; C1788; J0665; J0690; J1642; J2704; J3010; J3490; J7120

== ENCOUNTER 2024-12-01 09:13 | Inpatient (IN) | payer MEDICARE, BC ==
[2024-12-01] MEDS ORDERED: Sodium Chloride 0.9% 2.5 ML Syringe FLUSH PRN ×2 (09:19→13:52)
[2024-12-01 09:54] LABS: BASOPHILS ABSOLUTE AUTO 0.02 K/uL (0.00-0.20); BASOPHILS PERCENT AUTO 0.3 % (0.0-1.0); EOSINOPHILS ABSOLUTE AUTO 0.12 K/uL (0.00-0.45); EOSINOPHILS PERCENT AUTO 1.6 % (0.0-6.0); HEMATOCRIT 31.6 % (42.0-52.0); HEMOGLOBIN 10.7 g/dL (14.0-18.0); IMMATURE GRAN ABSOLUTE AUTO 0.04 K/uL (0.00-0.05); IMMATURE GRAN PERCENT AUTO 0.5 % (0.0-0.4); LYMPHOCYTES ABSOLUTE AUTO 0.83 K/uL (1.00-4.80); LYMPHOCYTES PERCENT AUTO 10.8 % (24.0-44.0); MEAN CORPUSCULAR HEMOGLOBIN 31.5 pg (28.0-32.0); MEAN CORPUSCULAR HGB CONC 33.9 g/dL (32.0-36.0); MEAN CORPUSCULAR VOLUME 92.9 fL (83.0-99.0); MEAN PLATELET VOLUME 11.4 fL (9.4-12.4); MONOCYTES ABSOLUTE AUTO 0.18 K/uL (0.00-0.80); MONOCYTES PERCENT AUTO 2.3 % (0.0-8.0); NEUTROPHILS ABSOLUTE AUTO 6.48 K/uL (1.80-7.70); NEUTROPHILS PERCENT AUTO 84.5 % (41.0-71.0); NRBC ABSOLUTE 0.02 K/uL (0.00-0.02); NRBC PERCENT 0.3 /100WBC (0.0-0.2); PLATELET COUNT,PLT 92 K/uL (150-400); WHITE BLOOD CELL COUNT,WBC 7.67 K/uL (3.9-11.3)
[2024-12-01] MEDS: Lidocaine/Epineph/Tetracaine 3 ML Syringe TOP ONE (09:59)
[2024-12-01] MEDS: Sodium Chloride 0.9% 10 ML Syringe FLUSH PRN (09:59)
[2024-12-01 10:06] LABS: INR 1.06 (0.86-1.11)
[2024-12-01 10:33] LABS: A/G RATIO 0.8 (0.9-1.6); ALBUMIN 2.1 g/dL (3.4-5.0); BILIRUBIN TOTAL 1.1 mg/dL (0.2-1.0); CALCIUM 7.8 mg/dL (8.5-10.1); CARBON DIOXIDE,CO2 25.5 mmol/L (21.0-32.0); CREATININE 1.1 mg/dL (0.8-1.3); EST CRCL DRUG DOSING (CG) 50.55 mL/min; POTASSIUM,K 4.2 mmol/L (3.5-5.1); PROTEIN TOTAL,TP 4.7 g/dL (6.4-8.2)
[2024-12-01] MEDS: Sodium Chloride 0.9% 500 ML IV SCH (11:30)
[2024-12-01] MEDS: Bacitracin Oint 1 GM U/D Packet TOP ONE (12:59)
[2024-12-01] MEDS ORDERED: Polyethylene Glycol 3350 Powder 17 GM Packet PO PRN (13:52)
[2024-12-01] MEDS ORDERED: Acetaminophen 325 MG Tab PO PRN (13:52)
[2024-12-01] MEDS ORDERED: Docusate Sodium 100 MG Cap PO PRN (13:52)
[2024-12-01] MEDS ORDERED: Sodium Chloride 0.9% 10 ML Syringe FLUSH PRN (13:52)
[2024-12-01] MEDS ORDERED: Ondansetron 4 MG/2 ML SDV IVPUSH PRN (13:52)
[2024-12-01] MEDS: Sodium Chloride 0.9% 1,000 ML IV ONE (16:16)
[2024-12-01] MEDS: Sodium Chloride 0.9% 1,000 ML IV SCH (17:35)
[2024-12-01 19:46] LABS: HEMATOCRIT 22.7 % (42.0-52.0); HEMOGLOBIN 7.8 g/dL (14.0-18.0); MEAN CORPUSCULAR HEMOGLOBIN 32.1 pg (28.0-32.0); MEAN CORPUSCULAR HGB CONC 34.4 g/dL (32.0-36.0); MEAN CORPUSCULAR VOLUME 93.4 fL (83.0-99.0); MEAN PLATELET VOLUME 11.4 fL (9.4-12.4); PLATELET COUNT,PLT 81 K/uL (150-400); RED BLOOD CELL COUNT 2.43 M/uL (4.52-5.90); WHITE BLOOD CELL COUNT,WBC 7.96 K/uL (3.9-11.3)
[2024-12-01] MEDS ORDERED: predniSONE 5 MG Tab PO SCH (21:00)
[2024-12-01] MEDS: Pantoprazole 80 MG in Sodium Chloride 0.9% 10 ML IVPUSH ONE (22:00)
[2024-12-01] MEDS: atorvaSTATin 40 MG Tab PO SCH (22:07)
[2024-12-01] MEDS: cefTRIAXone 2 GM in Sodium Chloride 0.9% 50 ML IV SCH (22:08)
[2024-12-01] MEDS: Octreotide 500 MCG in Sodium Chloride 0.9% 250 ML IV SCH (22:42)
[2024-12-01] MEDS: Vasopressin 20 UNITS in Sodium Chloride 0.9% 50 ML IV SCH (23:10)
[2024-12-02 00:51] LABS: HEMATOCRIT 24.1 % (42.0-52.0); HEMOGLOBIN 8.6 g/dL (14.0-18.0); MEAN CORPUSCULAR HEMOGLOBIN 32.2 pg (28.0-32.0); MEAN CORPUSCULAR HGB CONC 35.7 g/dL (32.0-36.0); MEAN CORPUSCULAR VOLUME 90.3 fL (83.0-99.0); MEAN PLATELET VOLUME 11.8 fL (9.4-12.4); NRBC ABSOLUTE 0.04 K/uL (0.00-0.02); NRBC PERCENT 0.5 /100WBC (0.0-0.2); PLATELET COUNT,PLT 59 K/uL (150-400); RED BLOOD CELL COUNT 2.67 M/uL (4.52-5.90); WHITE BLOOD CELL COUNT,WBC 8.26 K/uL (3.9-11.3)
[2024-12-02] MEDS: Vasopressin 20 UNITS in Sodium Chloride 0.9% 50 ML IV SCH (04:13)
[2024-12-02 04:16] LABS: BASOPHILS ABSOLUTE AUTO 0.03 K/uL (0.00-0.20); BASOPHILS PERCENT AUTO 0.3 % (0.0-1.0); EOSINOPHILS ABSOLUTE AUTO 0.02 K/uL (0.00-0.45); EOSINOPHILS PERCENT AUTO 0.2 % (0.0-6.0); HEMATOCRIT 23.8 % (42.0-52.0); HEMOGLOBIN 8.5 g/dL (14.0-18.0); IMMATURE GRAN ABSOLUTE AUTO 0.08 K/uL (0.00-0.05); IMMATURE GRAN PERCENT AUTO 0.9 % (0.0-0.4); LYMPHOCYTES ABSOLUTE AUTO 1.08 K/uL (1.00-4.80); LYMPHOCYTES PERCENT AUTO 11.7 % (24.0-44.0); MEAN CORPUSCULAR HEMOGLOBIN 32.2 pg (28.0-32.0); MEAN CORPUSCULAR HGB CONC 35.7 g/dL (32.0-36.0); MEAN CORPUSCULAR VOLUME 90.2 fL (83.0-99.0); MEAN PLATELET VOLUME 11.8 fL (9.4-12.4); MONOCYTES ABSOLUTE AUTO 0.19 K/uL (0.00-0.80); NEUTROPHILS ABSOLUTE AUTO 7.87 K/uL (1.80-7.70); NEUTROPHILS PERCENT AUTO 84.9 % (41.0-71.0); NRBC ABSOLUTE 0.03 K/uL (0.00-0.02); NRBC PERCENT 0.3 /100WBC (0.0-0.2); PLATELET COUNT,PLT 65 K/uL (150-400); RED BLOOD CELL COUNT 2.64 M/uL (4.52-5.90); WHITE BLOOD CELL COUNT,WBC 9.27 K/uL (3.9-11.3)
[2024-12-02 04:31] LABS: CALCIUM 6.9 mg/dL (8.5-10.1); CARBON DIOXIDE,CO2 21.9 mmol/L (21.0-32.0); CREATININE 1.3 mg/dL (0.8-1.3); EST CRCL DRUG DOSING (CG) 42.5 mL/min; MAGNESIUM 1.6 mg/dL (1.8-2.4); POTASSIUM,K 5.1 mmol/L (3.5-5.1)
[2024-12-02] MEDS ORDERED: Pantoprazole 40 MG in Sodium Chloride 0.9% 10 ML IVPUSH SCH (08:00)
[2024-12-02] MEDS: Iopamidol 755 MG/ML 500 ML Multipack Bottle IVPUSH STA (08:05)
[2024-12-02] MEDS ORDERED: Magnesium Sulfate/Water Premix 2 GM in Premix Bag 1 BAG IV ONE (08:07)
[2024-12-02] MEDS ORDERED: Ascorbic Acid 500 MG Tab PO SCH (09:00)
[2024-12-02] MEDS ORDERED: Amiodarone 200 MG Tab PO SCH (09:00)
[2024-12-02] MEDS ORDERED: Multivitamins with Iron/Calcium/Folic Acid/Minerals Tab PO SCH (09:00)
[2024-12-02 09:11] LABS: HEMATOCRIT 23.8 % (42.0-52.0); HEMOGLOBIN 8.3 g/dL (14.0-18.0)
[2024-12-02 12:26] VITALS: BP 112/57
[2024-12-02 12:31] VITALS: PULSE 83
== END 2024-12-02 10:53 | DRG 312 ==
LOC: MW.ED 09:13 → MW.MS 13:31 → OBSVTOIN 14:21 → MW.ICU 20:10
PROVIDERS: ADMIT Family Medicine; ATTEND Family Medicine
PROC: 30233N1 Transfusion of Nonautologous Red Blood Cells into Peripheral Vein, Percutaneous Approach (ICD-10-PCS; principal; 2024-12-01)
DX: I95.1 Orthostatic hypotension (principal); R57.1 Hypovolemic shock; C79.82 Secondary malignant neoplasm of genital organs; D69.3 Immune thrombocytopenic purpura; K92.2 Gastrointestinal hemorrhage, unspecified; Z66 Do not resuscitate; R53.81 Other malaise; J30.9 Allergic rhinitis, unspecified; H91.90 Unspecified hearing loss, unspecified ear; H54.7 Unspecified visual loss; I48.91 Unspecified atrial fibrillation; I25.10 Atherosclerotic heart disease of native coronary artery without angina pectoris; E78.00 Pure hypercholesterolemia, unspecified; I25.2 Old myocardial infarction; E86.0 Dehydration; M81.0 Age-related osteoporosis without current pathological fracture; C61 Malignant neoplasm of prostate; Z79.899 Other long term (current) drug therapy; Z95.2 Presence of prosthetic heart valve; Z79.01 Long term (current) use of anticoagulants; Z98.890 Other specified postprocedural states; Z86.73 Personal history of transient ischemic attack (TIA), and cerebral infarction without residual deficits; Z90.79 Acquired absence of other genital organ(s); Z85.038 Personal history of other malignant neoplasm of large intestine; Z95.5 Presence of coronary angioplasty implant and graft
CPT/HCPCS: 12001; 12011; 36415; 36430; 70450; 70450-26; 71045; 71045-26; 74177; 74177-26; 80048; 80053; 82550; 83690; 83735; 84484; 85014; 85018; 85025; 85027; 85610; 86850; 86900; 86901; 86920; 93005; 96360; 99285-25; A9270-GY; J0696; J1642; J2354-JA; J2470; J3490; J7030; J7040; P9016; Q9967